=== PATIENT | male | born 1950 | race Caucasian/White ===

== ENCOUNTER → 2024-02-16 12:26 | Outpatient (REF) | payer OTHER, SELFPAY ==
[2024-02-16 13:39] LABS: % Basophils 1.1 % (0-2); % Eosinophils 0.9 % (0-6); % Immature Granulocytes 0.4 % (0-0.5); % Lymphocytes 35.5 % (20.5-51.1); % Monocytes 8.1 % (1.7-9.3); Absolute Basophils 0.1 10^3/uL (0-0.2); Absolute Eosinophils 0.1 10^3/uL (0-0.7); Absolute Lymphocytes 1.9 10^3/uL (1.2-3.4); Absolute Monocytes 0.4 10^3/uL (0.1-0.6); Hematocrit 41.5 % (39.0-52.0); Hemoglobin 13.7 g/dL (13.0-18.0); Mean Corpuscular Hgb 32.4 pg (27.0-31.0); Mean Corpuscular Volume 98.1 fL (80.0-94.0); Mean Platelet Volume 9.2 fL (7.4-10.4); Nucleated Red Blood Cells % 0 % (-); Platelet Count 190 10^3/uL (130-400); Red Blood Cell Count 4.23 10^6/uL (4.70-6.10); Red Cell Dist. Width 13.3 % (11.5-14.5); White Blood Cell Count 5.5 10^3/uL (4.8-10.8)
[2024-02-16 14:26] LABS: ALT (SGPT) 14 U/L (0-50); AST (SGOT) 23 U/L (17-59); Albumin 4.4 g/dl (3.5-5.0); Alkaline Phosphatase 69 U/L (38-126); Blood Urea Nitrogen 16 mg/dl (9-20); Calcium 9.9 mg/dl (8.4-10.2); Carbon Dioxide 25 mmol/L (22-30); Chloride 102 mmol/L (98-107); Glucose 93 mg/dl (70-99); HDL Cholesterol 100 mg/dl; LDL Cholesterol, Calculated 116 mg/dl; Potassium 4.5 mmol/L (3.5-5.1); Sodium 137 mmol/L (135-145); Total Bilirubin 0.7 mg/dl (0.2-1.3); Total Cholesterol 227 mg/dl (50-199); Total Protein 7.4 g/dl (6.3-8.2); Triglyceride 57 mg/dl (10-149); Very Low Density Lipoprotein 11 mg/dl (0-30); eGFR > 60.00
[2024-02-16 14:53] LABS: TSH Reflex To Free T4 1.34 uIU/ml (0.47-4.68)
[2024-02-16 15:12] LABS: Vitamin B12 342 pg/ml (239-931)
[2024-02-19 07:02] LABS: PSA Total 2.3 ng/mL (0.0-4.0)
== END ==
LOC: REG 12:26
PROVIDERS: ATTENDING PHYSICIAN Radiology Radiation Oncology; FAMILY PHYSICIAN Internal Medicine
DX: C61 Malignant neoplasm of prostate (principal); E53.8 Deficiency of other specified B group vitamins; E78.00 Pure hypercholesterolemia, unspecified; D07.5 Carcinoma in situ of prostate
CPT/HCPCS: 36415; 80053; 80061; 82607; 84153; 84154; 84443; 85025

== ENCOUNTER → 2024-10-06 12:45 | Outpatient (REF) | payer MEDICARE, SELFPAY ==
[2024-10-06 16:08] LABS: PSA, Total - Diagnostic 1.27 ng/ml (0.0-4.0)
== END ==
LOC: REG 12:45
PROVIDERS: ATTENDING PHYSICIAN Radiology Radiation Oncology
DX: C61 Malignant neoplasm of prostate (principal)
CPT/HCPCS: 36415; 84153